=== PATIENT | female | born 1965 | race Hispanic/Latino ===

== ENCOUNTER 2017-07-07 16:33 | Emergency (ER) | payer MEDICAID ==
[2017-07-07 17:03] VITALS: BP 123/75; PULSE 87; RESP 20; TEMP 97.8; O2SAT 98
--- NOTE | 2017-07-07 18:57 | ED PDOC ---
Upper Extremity Pain/Injury Time Seen by Provider: 07/07/17 17:11 Chief Complaint (Nursing): Upper Extremity Problem/Injury Chief Complaint (Provider): Upper Extremity Problem/Injury History Per: Patient History/Exam Limitations: no limitations Onset/Duration Of Symptoms: Days (x 7 ) Current Symptoms Are (Timing): Intermittent Episodes Additional Complaint(s): 51 year old female presents to the ED with complaints of a rash to the bilateral upper extremities and left hand swelling of intermittent episodes for the last week. Patient reports she was seen and evaluated at a clinic yesterday and had blood work performed which resulted normal. Patient states that three weeks ago, while back home in [place], she had an MRI of her entire spine and head performed along with abdominal ultrasound and endoscopy which all resulted normal. Patient reports she has an appointment with PMD tomorrow. Patient states she received a call from urgent care today stating everything was normal and if she is still concerned to go to ED prompting today's visit. Denies rash at this time or any new complaints. Patient denies fever, joint pain, nausea, vomiting, diarrhea, abdominal pain, chest pain, SOB, sick contacts. PMD: Out of state ([place]) Past Medical History Reviewed: Historical Data, Nursing Documentation, Vital Signs Vital Signs: Last Vital Signs Temp 97.8 F 07/07/17 16:59 Pulse 87 07/07/17 16:59 Resp 20 07/07/17 16:59 BP 123/75 07/07/17 16:59 Pulse Ox 98 07/07/17 16:59 - Medical History PMH: Multiple Sclerosis Other PMH: Ectopic - Surgical History Surgical History: Endoscopy Other surgeries: ectopic - Family History Family History: States: Unknown Family Hx - Social History Current smoker - smoking cessation education provided: No Alcohol: None Drugs: Denies - Home Medications Home Medications: Ambulatory Orders Medication Instructions Recorded Meclizine [Meclizine*] 25 mg PO Q8 PRN #30 tab 11/24/15 - Allergies Allergies/Adverse Reactions: Allergies Allergy/AdvReac Type Severity Reaction Status Date / Time doxycycline Allergy RASH Verified 07/07/17 18:12 Review of Systems ROS Statement: Except As Marked, All Systems Reviewed And Found Negative Musculoskeletal: Negative for: Hand Pain (left hand swelling) Skin: Negative for: Rash Physical Exam - Reviewed Nursing Documentation Reviewed: Yes Vital Signs Reviewed: Yes - Physical Exam Appears: Positive for: Well, Non-toxic Head Exam: Positive for: ATRAUMATIC, NORMOCEPHALIC Skin: Positive for: Normal Color, Warm, Dry Eye Exam: Positive for: EOMI, PERRL ENT: Positive for: Pharynx Is (clear, uvula midline). Negative for: Tonsillar Exudate, Tonsillar Swelling Neck: Positive for: Painless ROM, Supple Cardiovascular/Chest: Positive for: Regular Rate, Rhythm. Negative for: Bradycardia, Tachycardia Respiratory: Positive for: Normal Breath Sounds. Negative for: Decreased Breath Sounds, Accessory Muscle Use, Respiratory Distress Gastrointestinal/Abdominal: Positive for: Soft. Negative for: Tenderness, Distended, Guarding Back: Positive for: Normal Inspection. Negative for: L CVA Tenderness, R CVA Tenderness, Vertebral Tenderness Neurologic/Psych: Positive for: Alert, window shade estimator II-XII (grossly intact), Oriented (x3 ), Mood/Affect (anxious appearing), Cerebellar Tests (intact), Gait (steady in ED). Negative for: Aphasia, Facial Droop Comments: LUE: No rash noted at this time. No tenderness and swelling to the left hand. Full ROM of digits - ECG O2 Sat by Pulse Oximetry: 98 (RA) Pulse Ox Interpretation: Normal Medical Decision Making Medical Decision Making: Clinical Impression: Concern for rash and hand swelling. Plan: Based on history, exam, and diagnostic results plan will be for discharge home Advised to follow up with primary care physician tomorrow without fail as planned. Return to the emergency room at any time for any new or worsening symptoms. Patient states she fully agrees with and understands discharge instructions. States that she agrees with the plan and disposition. Verbalized and repeated discharge instructions and plan. I have given the patient opportunity to ask any additional questions. Scribe Attestation: Documented by Jessica Salinas, acting as a scribe for Shania Dominguez PA-C. Provider Scribe Attestation: All medical record entries made by the Scribe were at my direction and personally dictated by me. I have reviewed the chart and agree that the record accurately reflects my personal performance of the history, physical exam, medical decision making, and the department course for this patient. I have also personally directed, reviewed, and agree with the discharge instructions and disposition. Disposition - Clinical Impression Clinical Impression: Swelling of hand, Rash and nonspecific skin eruption - Patient ED Disposition Is Patient to be Admitted: No Counseled Patient/Family Regarding: Diagnosis - Disposition Disposition: Routine/Home Disposition Time: 18:44 Condition: STABLE Additional Instructions: FOLLOW UP WITH PMD PLANNED TOMORROW. Instructions: Skin Rash, Hand Pain (DC) Forms: [facility] (Malay) Print Language: ARABIC - POA Present On Arrival: None
== END 2017-07-07 18:56 | disposition home or self-care (01) ==
LOC: H.ER 16:33
DX: R21 Rash and other nonspecific skin eruption (principal); R22.32 Localized swelling, mass and lump, left upper limb; G35 Multiple sclerosis